=== PATIENT | male | born 1995 | race African-American/Black ===

== ENCOUNTER 2019-12-07 09:18 | Emergency (ER) | payer MEDICAID, OTHER ==
[~2019-12-07] VITALS: Ht 175.3 cm; Wt 83.2 kg
[~2019-12-07 09:18] MED LIST: NOCURR
[2019-12-07 09:45] VITALS: BP 149/78
[2019-12-07] MEDS ORDERED: PENICILLIN G BENZATHINE LA 2,400,000 UNITS/4 ML SYRINGE IM ONE (09:45)
[2019-12-07] MEDS ORDERED: AZITHROMYCIN 250 MG TABLET PO ONE (09:45)
[2019-12-07] MEDS ORDERED: CefTRIAXone SODIUM 1 GM/VIAL IM ONE (09:45)
[2019-12-07] MEDS ORDERED: LIDOCAINE/PF 1% 2 ML VIAL IM ONE (09:45)
[2019-12-07 09:53] LABS: APPEARANCE,URINE CLEAR (CLEAR); BILIRUBIN,URINE NEGATIVE (NEGATIVE); GLUCOSE, URINE (UA) NEGATIVE (NEGATIVE); KETONES,URINE NEGATIVE (NEGATIVE); LEUKOCYTE ESTERASE ,URINE NEGATIVE (NEGATIVE); NITRATE,URINE NEGATIVE (NEGATIVE); OCCULT BLOOD,URINE NEGATIVE (NEGATIVE); PROTEIN,URINE NEGATIVE (NEGATIVE)
[2019-12-07 10:26] LABS: BACTERIA,URINE None Seen /HPF (None Seen); RBC,URINE None Seen /HPF (0-2); WBC,URINE None Seen /HPF (0-5)
== END 2019-12-07 10:47 | disposition home or self-care (01) ==
LOC: EMS 09:20
DX: N34.2 Other urethritis (principal); N48.5 Ulcer of penis
CPT/HCPCS: 81001; 87491; 87591; 96372; 99283; J0561; J0696; J3490

== ENCOUNTER 2024-02-08 17:10 | Emergency (ER) | payer MEDICAID | END 2024-02-09 01:59 | disposition left against medical advice (07) | LOC: EMS 17:15 | DX: Z53.21 Procedure and treatment not carried out due to patient leaving prior to being seen by health care provider (principal) ==

== ENCOUNTER 2024-07-14 09:20 | Emergency (ER) | payer MEDICAID ==
[~2024-07-14] VITALS: Ht 175.3 cm; Wt 81.8 kg
[2024-07-14 09:23] VITALS: BP 110/56; PULSE 85; RESP 16; TEMP 98; O2SAT 100
[2024-07-14] MEDS: LIDOCAINE 1% 10 ML VIAL SQ ONE (09:57)
== END 2024-07-14 10:54 | disposition home or self-care (01) ==
LOC: EMS 09:20
DX: S61.012A Laceration without foreign body of left thumb without damage to nail, initial encounter (principal); W26.8XXA Contact with other sharp object(s), not elsewhere classified, initial encounter; Y93.89 Activity, other specified; Y92.89 Other specified places as the place of occurrence of the external cause; Y99.8 Other external cause status
CPT/HCPCS: 99282; 12001; J3490

== ENCOUNTER 2024-07-21 12:40 | Emergency (ER) | payer MEDICAID ==
[~2024-07-21] VITALS: Ht 175.3 cm; Wt 77.3 kg
[2024-07-21 12:47] VITALS: BP 112/49; PULSE 52; RESP 18; TEMP 97.7; O2SAT 100
== END 2024-07-21 14:19 | disposition home or self-care (01) ==
LOC: EMS 12:43
DX: S61.012D Laceration without foreign body of left thumb without damage to nail, subsequent encounter (principal); Z48.02 Encounter for removal of sutures; X58.XXXD Exposure to other specified factors, subsequent encounter
CPT/HCPCS: 99281; Z7502